=== PATIENT | male | born 1970 | race Two or more races ===

== ENCOUNTER 2024-05-08 09:35 | Emergency (ER) | payer OTHER ==
[~2024-05-08] VITALS: Ht 180.3 cm; Wt 93.0 kg
[2024-05-08] MEDS ORDERED: ATORVASTATIN CA40 MG PO (09:56)
[2024-05-08] MEDS ORDERED: OZEMPIC1 MG/0.71 SQ (09:56)
[2024-05-08] MEDS ORDERED: AMLODIPINE BESYL5 MG PO (09:56)
[2024-05-08] MEDS ORDERED: TADALAFIL5 MG PO (09:56)
[2024-05-08] MEDS ORDERED: SYNJARDY XR 101 EACH PO (09:57)
[2024-05-08] MEDS ORDERED: EZETIMIBE10 MG PO (09:57)
[2024-05-08] MEDS ORDERED: TAMSULOSIN HCL0.4 MG PO (09:57)
[2024-05-08] MEDS ORDERED: ONDANSETRON HCL 2 MG/ML VIAL IV ONE (10:30)
[2024-05-08] MEDS ORDERED: 0.9 % SODIUM CHLORIDE 1,000 ML IV ONE (10:30)
[2024-05-08] MEDS ORDERED: FAMOtidine 10 MG/ML (4ML VIAL) IV ONE (10:30)
[2024-05-08 10:57] LABS: HEMATOCRIT 48.6 % (39.0-48.0); HEMOGLOBIN 17.2 g/dL (13-16.00); MEAN CELL VOLUME 96.8 fL (80.0-100.00); MEAN CORPUSCULAR HEMOGLOBIN 34.2 pg (27.00-32.0); MEAN CORPUSCULAR HGB CONC 35.3 g/dl (32.0-36.0); PLATELET COUNT 177 K/uL (150-450); RED BLOOD COUNT 5.02 M/uL (4.00-6.00); RED CELL DISTRIBUTION WIDTH 12.7 % (11.5-14.5)
[2024-05-08 11:17] LABS: ALBUMIN 4.3 gm/dL (3.4-5.0); BILIRUBIN TOTAL 1.08 mg/dL (0.3-1.2); CALCIUM 10.8 mg/dL (8.5-10.1); CREATININE SERUM 1.19 mg/dL (0.70-1.30); GFR 63.24; GLOBULINA 3.6 G/DL (2.4-3.5); POTASSIUM 4.26 mEq/L (3.5-5.1); TOTAL PROTEIN 7.9 gm/dL (6.4-8.2)
[2024-05-08 12:04] LABS: URINE APPEARANCE Cloudy; URINE BILIRRUBIN Negative (NEGATIVE); URINE BLOOD Negative; URINE COLOR Yellow; URINE KETONE 15 (NEGATIVE); URINE LEUKOCYTE Negative; URINE NITRATE Negative; URINE PROTEIN Negative (NEGATIVE); URINE UROBILINOGEN 0.2 E.U./dl
[2024-05-08 12:08] LABS: URINE BACTERIA 35.2 uL (0.0-1933); URINE EPITHELIAL CELLS 3.6 uL (0.0-38.8); URINE RBC 7.9 uL (0.0-20.8); URINE WBC 5.3 uL (0.0-23.2)
[2024-05-08 12:13] LABS: URINE GLUCOSE >=1000 MG/DL (NEGATIVE)
== END 2024-05-08 12:19 | disposition home or self-care (01) ==
LOC: ER 09:36
PROVIDERS: General Practice
DX: K29.70 Gastritis, unspecified, without bleeding (principal); R11.10 Vomiting, unspecified; E11.9 Type 2 diabetes mellitus without complications; Z79.84 Long term (current) use of oral hypoglycemic drugs
CPT/HCPCS: 96365; 99282; J2405; J3490; J7030